=== PATIENT | male | born 1945 | race Caucasian/White ===

== ENCOUNTER → 2023-04-29 | Day surgery (SDC) | payer BC ==
[~2023-04-29] MED LIST: Dexamethasone 4 mg/ml Vial ONE; Fentanyl 250 MCG/5 ML VIAL ONE; Glucagon 1 MG/ML KIT ONE; Ondansetron PF 4 MG/2 ML Vial ONE; PROPOFOL 20 ML ONE; Succinylcholine 200 MG/10 ml SYRINGE FS ONE
== END ==
LOC: CSHERS 10:39 → CSHSDC/OP 13:07 → CSHERS 14:30
PROVIDERS: ATTEND Internal Medicine Gastroenterology
PROC: 0DC58ZZ Extirpation of Matter from Esophagus, Via Natural or Artificial Opening Endoscopic (ICD-10-PCS; principal; 2023-04-29)
PROC: 0DB58ZX Excision of Esophagus, Via Natural or Artificial Opening Endoscopic, Diagnostic (ICD-10-PCS; principal; 2023-04-29)
DX: T18.128A Food in esophagus causing other injury, initial encounter (principal); I48.91 Unspecified atrial fibrillation; I10 Essential (primary) hypertension; E66.9 Obesity, unspecified; K21.9 Gastro-esophageal reflux disease without esophagitis; Z79.01 Long term (current) use of anticoagulants; Z79.899 Other long term (current) drug therapy
CPT/HCPCS: J1100; J1611; J2405; J2704; J3010